=== PATIENT | male | born 1955 | race African-American/Black ===

== ENCOUNTER 2024-12-12 10:04 | Emergency (ER) | payer OTHER, SELFPAY ==
[2024-12-12 10:10] VITALS: BP 146/98; PULSE 62; RESP 20; TEMP 36.6; O2SAT 100
--- NOTE | 2024-12-12 10:31 | ED.EAR ---
HPI - Ear Problem General Chief complaint: Ear Stated complaint: left ear Time Seen by Provider: 12/12/24 10:15 Source: patient and RN notes reviewed Mode of arrival: ambulatory Limitations: no limitations History of Present Illness HPI Narrative: 69-year-old male presents Express Care with caregiver complaining of left ear pain the last 3 days. Patient has an intellectual disability patient is verbal but unable to hold a conversation. Caregiver states paste been complain of his ear hurting the last 3 days. Caregiver denies any upper respiratory symptoms, fevers, cough, nausea, vomiting, diarrhea, chest pain, breathing problems, or any other symptoms. They have not tried anything [id number] to help with pain. Related Data Allergies Allergy/AdvReac Type Severity Reaction Status Date / Time No Known Allergies Allergy Verified 12/12/24 10:20 Review of Systems Review of Systems: CONSTITUTIONAL: Denies fever, chills, or sweats. EYES: Denies visual changes, redness, or discharge. ENT: Denies rhinorrhea, congestion, sore throat. Positive for otalgia. CARDIOVASCULAR: Denies chest pain, palpitations, or edema. RESPIRATORY: Denies cough or dyspnea. GASTROINTESTINAL: Denies abdominal pain, nausea, vomiting, or diarrhea. GENITOURINARY: Denies dysuria or hematuria. SKIN: Denies rash or itching. MUSCULOSKELETAL: Denies back pain, joint pain, or myalgia. NEUROLOGIC: Denies headache, numbness, or weakness. PSYCHIATRIC: Denies anxiety or depression. All other systems reviewed are negative, except as documented in HPI. PMFSH Comments At the time of my signature, I reviewed and agree with the nursing past medical, surgical, social, and family history. There is no relevant family history pertinent to the patient complaint. Exam Narrative: GENERAL: This is a well-nourished, well-developed adult, in no apparent distress. They are non ill-appearing, nontoxic appearing. HEAD: normocephalic, atraumatic. EYES: Sclera clear/white. Conjunctiva normal. Vision is grossly intact. Extraocular movements intact EARS: External ears normal, auditory canals clear and without drainage, TMs normal without perforation. Hearing grossly intact. NOSE: External nose normal with no obvious nasal discharge, nasal turbinates without redness, no rhinorrhea. THROAT: Mucous membranes moist, posterior pharynx clear, without erythema or swelling. Uvula midline. NECK: Neck supple, non-tender without lymphadenopathy, masses or thyromegaly. CARDIOVASCULAR: Regular rate and rhythm without murmurs, gallops, or rubs. RESPIRATORY: Clear to auscultation. Breath sounds equal bilaterally. No wheezes, rales, or rhonchi. SKIN: warm, Dry, intact with no suspicious lesions or rash, good texture and turgor. NEURO: awake, alert, and oriented to person. In status is baseline for patient. There were no obvious focal neurologic abnormalities. EXTREMITIES: No joint tenderness, effusion, or edema noted. Course Course Emergency Course: Portions of this record may have been created with voice recognition software Level of Care: Express Care Visit Vital Signs Vital signs: Vital Signs Temperature 97.8 F 12/12/24 10:10 Pulse Rate 62 12/12/24 10:10 Respiratory Rate 12/12/24 10:10 Blood Pressure 146/98 H 12/12/24 10:10 Pulse Oximetry 100 12/12/24 10:10 Oxygen Delivery Room Air 12/12/24 10:10 Temperature 97.8 F 12/12/24 10:10 Pulse Rate 62 12/12/24 10:10 Respiratory Rate 12/12/24 10:10 Blood Pressure 146/98 H 12/12/24 10:10 Pulse Oximetry 100 12/12/24 10:10 Oxygen Delivery Room Air 12/12/24 10:10 Reviewed Medical Decision Making MDM Narrative Medical decision making narrative: Physical exam reassuring, no evidence of infection on exam. No ear infection noted on exam. Likely in earache. Recommend supportive therapy. Discussed physical exam findings. Advised supportive measures and signs/symptoms to go to the ER. Pt is appropriate for outpt treatment and f/u. Differential Diagnosis Differential Diagnosis: Otitis media, otitis externa, impacted cerumen, earache, Vital Signs Vital Signs: Vital Signs Temperature 97.8 F 12/12/24 10:10 Pulse Rate 62 12/12/24 10:10 Respiratory Rate 12/12/24 10:10 Blood Pressure 146/98 H 12/12/24 10:10 Pulse Oximetry 100 12/12/24 10:10 Oxygen Delivery Room Air 12/12/24 10:10 Temperature 97.8 F 12/12/24 10:10 Pulse Rate 62 12/12/24 10:10 Respiratory Rate 12/12/24 10:10 Blood Pressure 146/98 H 12/12/24 10:10 Pulse Oximetry 100 12/12/24 10:10 Oxygen Delivery Room Air 12/12/24 10:10 Critical Care Time Critical Care Time Critical Care Time: No Discharge Plan Discharge Clinical Impression: Earache on left Patient Disposition: Home Condition: Stable Instructions: Earache (ED) Additional Instructions: Linus may take his prescribed p.r.n. Tylenol or ibuprofen as directed on the prescription for pain. No evidence on the infection exam. Please follow-up PCP in 5-7 days for re-evaluation especially if pain persists or symptoms change. Go to the ER if he develops breathing problems, vomiting, chest pains, confusion, fevers, or any serious concerns. Patient Language: Stateless Follow-up/Referrals: PHYSICIAN NOT ON STAFF,NONSTAFF [Primary Care Provider] Time of Disposition: 10:27
--- OUTSIDE RECORDS SUMMARY | 2024-12-12 11:08 | XMS_ITS | Clinical Summary ---
Author Organization [facility] Address [address], [facility] [address] [place] [address] Phone Care Team Providers Care Podiatric Foot And Ankle Specialist Name Role Phone Reynaldo Carlos DPM Unavailable [phone] Yoanna Jewell APRN, COSMETICS COUNTER MANAGER Primary Care P rovider JoseE Caceres MD Unavailable [phone] Allergies No known active allergies Medications acetaminophen (TYLENOL) 325 MG Tablet Take 650 mg by mouth every 4 hours as needed. Active guaiFENesin (ROBITUSSIN) 100 MG/5ML Liquid Take 200 mg by mouth every 4 hours as needed. Active atorvastatin (LIPITOR) 10 MG Tablet Take 1 Tab by mouth daily. 90 Tab 2 08/14/19 17 Active sertraline (ZOLOFT) 100 MG Tablet Take 200 mg by mouth every morning. 10/22/19 17 Active Cholecalciferol (VITAMIN D3) 1000 UNIT Tablet Take 1 Tab by mouth daily. 90 Tab 1 03/18/20 17 Active clonazePAM (KLONOPIN) 0.5 MG Tablet Take 0.25 mg by mouth 2 times daily. 08/28/19 18 Active Psyllium (Reguloid) 48.57 % PowderIndication s:Constipation, unspecified constipation type 1 rounded teaspoon in 8 oz water daily by mouth 1254 g 1 09/03/19 24 Active ibuprofen (MOTRIN) 400 MG Tablet Take 400 mg by mouth every 8 hours as needed for Mild or more severe pain. Active simethicone (Gas-X Ultra Strength) 180 MG CapsuleIndicatio ns:History of colon polyps Take as directed per double colon prep instructions 6 Capsule 05/27/19 25 Active bisacodyl EC (Dulcolax) 5 MG Tablet Delayed ResponseIndicati ons:History of colon polyps Take as directed per double colon prep instructions 6 Tablet 05/27/19 25 Active polyethylene glycol (MiraLax) 17 GM/SCOOP PowderIndication s:History of colon polyps Dispense two 238 gram bottles, follow double prep instruction for administration times. 476 g 05/27/19 25 Active Probiotic Product (Edico Genome) CapsuleIndicatio ns:Constipation, unspecified constipation type Take one tablet once daily 30 Capsule 6 06/09/19 25 Active Active Problems Problem Noted Date Diagnosed Date Profound intellectual disability 03/21/2016 HLD (hyperlipidemia) Hypertension Right-sided hemiplegic cerebral palsy Resolved Problems Problem Noted Date Diagnosed Date Resolved Date Status post partial colectomy 01/31/2020 07/02/2021 GI bleed 01/14/2020 07/02/2021 Acute blood loss anemia 01/14/202006/21 Left arm swelling 01/14/2020 07/02/2021 Sigmoid volvulus 01/09/2020 07/02/2021 Onychomycosis of toenail Immunizations Immunization Administration Dates Next Due Covid-19, Mrna, Lnp-s, Pf, 1 00 Mcg Or 50 Mcg Dose (MODERNA) 02/12/2021,05/23/2020,04/24/2020 Influenza Vaccine 12/16/2023 Influenza Vaccine greater than 3 yrs 01/24/2016, 12/21/2013 Influenza Vaccine, Quadrivalent, PF 12/10/2022,1 ,01/03/2021 Influenza, Injectable, Quadrivalent 02/01/2020,1 04/06/2015 Influenza, Seasonal, Injecta ble, Undefined 03/06/2019,12/22/2014,12/22/2013,2012 Pneumococcal Vaccine Adult - 23 Valent 01/22/2004 Sars-cov-2 (Covid-19) Vaccin e, Unspecified 12/16/2023 TB Skin Test 03/23/2012 TD VACCINE 01/21/2006,07/02/2005 TDAP Vaccine 07/03/2015 Td (Adult) 01/28/2006 Social History Tobacco Use Types Packs/Day Years Used Date Smoking Tobacco: Never Smokeless Tobacco: Never Tobacco Cessation:Counseling Given: No Alcohol Use Standard Drinks/Week Comments No 0 (1 standard drink = 0.6 oz pur e alcohol) [facility] Utilities Answer Date Recorded In the past 12 months has th e electric, gas, oil, or water company threatened to shut off services in your home? Patient declined 06/09/2024 Social Connection and Isolation Panel Answer Date Recorded In a typical week, how many times do you talk on the phone with family, friends, or neighbors? Patient declined 06/09/2024 How often do you get togethe r with friends or relatives? Patient declined 06/09/2024 How often do you attend jehovah's witness or restoration serv ices? Patient declined 06/09/2024 Do you belong to any clubs o r organizations such as jehovah's witness groups, unions, fraternal or athletic groups, or school groups? Patient declined 06/09/2024 How often do you attend meet ings of the clubs or organizations you belong to? Patient declined 06/09/2024 Are you , , di vorced, , never , or living with a partner? Patient declined 06/09/2024 AUDIT-C Answer Date Recorded Q1: How often do you have a drink containing alc ohol? Patient declined 06/09/2024 Q2: How many drinks containi ng alcohol do you have on a typical day when you are drinking? Patient declined 06/09/2024 Q3: How often do you have si x or more drinks on one occasion? Patient declined 06/09/2024 Overall Financial Resource Strain (CARDIA) Answe r Date Recorded How hard is it for you to pa y for the very basics like food, housing, medical care, and heating? Patient declined 06/09/2024 [facility] - Occupational Stress Questionnaire Answer Date Recorded Do you feel stress - tense, restless, nervous, or anxious, or unable to sleep at night because your mind is troubled all the time - these days? Patient declined 06/09/2024 Exercise Vital Sign Answer Date Recorde d On average, how many days pe r week do you engage in moderate to strenuous exercise (like a brisk walk)? Patient declined On average, how many minutes do you engage in exercise at this level? Patient declined 06/09/2024 Hunger Vital Sign Answer Date Recorded Within the past 12 months, y ou worried that your food would run out before you got the money to buy more. Patient declined Within the past 12 months, t he food you bought just didn't last and you didn't have money to get more. Patient declined PRAPARE - Transportation Answer Date Re corded In the past 12 months, has l ack of transportation kept you from medical appointments or from getting medications? Patient declined 06/09/2024 In the past 12 months, has l ack of transportation kept you from meetings, work, or from getting things needed for daily living? Patient declined 06/09/2024 Housing Stability Vital Sign Answer Jp e Recorded In the last 12 months, was t here a time when you were not able to pay the mortgage or rent on time? Patient declined 06/10/19 Number of Times Moved in the Last Year Not on fi le 06/09/2024 At any time in the past 12 m [facility], were you homeless or living in a [facility] (including now)? Patient declined 06/09/2024 Sexually Active Control Partners Comments Never Sex and Gender Information Value Date Recorded Sex Assigned at Not on file Legal Sex Male 12:14 AM CDT Gender Identity Not on file Sexual Orientation Not on file Last Filed Vital Signs Vital Sign Reading Time Taken Comments Blood Pressure 122/84 06/16/2024 10:21 AM CDT Pulse 62 06/16/2024 10:21 AM CDT Temperature 36.2 C (97.2 F) 06/16/2024 10:21 AM CDT Respiratory Rate 18 06/16/2024 10:21 AM CDT Oxygen Saturation 95% 06/16/2024 10:21 AM CDT Inhaled Oxygen Concentration - - Weight 85.3 kg (188 lb) 06/16/2024 10:21 AM CDT Height 170.2 cm (5' 7) 06/16/2024 10:21 AM CDT Body Mass Index 29.44 06/16/2024 10:21 AM CDT Plan of Treatment Upcoming Encounters Date Type Department Care Team (Late st Contact Info) Description 12/15/2024 8:00 AM CDT Lab [facility] [place] [address] [place] [id number] 12/22/2024 9:15 AM CDT Office Visit [facility] [place] [address] [place] [address] Yoanna Jewell, HOT STRIP MILL SUPERVISOR, COSMETICS COUNTER MANAGER [address] [place] [address] Health Maintenance Due Date Last Done Comments Cologuard 02/25/2000 Immunochemical Fecal Occult Blood 05/26/2019 05/25/2018 Zoster Immunization (2 of 2) 08/03/2024 06/08/2024 Influenza Immunization (#1) 11/21/202411/22, 12/10/2022, 01/02/2022, Additional history exists SARS-COV-2 Immunization ( season) 2024 12/16/2023, 02/16/2023, 01/02/2022, Additional history exists Td Immunization Every 10 Years (Adults With 1 Tdap) 07/02/2025 07/03/2015, 01/28/2006, 01/21/2006, Additional history exists Colonoscopy 06/16/2027 06/15/2024, 12/21, 01/31/2019 Colorectal Cancer Screening 06/16/2027 PSA Discussion Completed 11/12/2022, 10/21, 10/27/2015 Pneumococcal Immunization (50+ years) Completed 06/08/2024, 01/22/2004 Pneumococcal Immunization Combined Discontinued 06/08/2024, 01/22/2004 Respiratory Syncytial Virus (RSV) Immunization (Adult) Completed 06/08/2024 Hepatitis C Virus (HCV) Screening Completed 06/09/2024 Hepatitis B Immunization Aged Out No longer eligible based on patient's age to complete this topic Human Papillomavirus (HPV) Immunization Aged Out No longer eligible based on patient's age to complete this topic Meningococcal Immunization (ACWY) Aged Out No longer eligible based on patient's age to complete this topic Rotavirus Immunization Aged Out No lo nger eligible based on patient's age to complete this topic Procedures Procedure Name Priority Date/Time Associated Diagnosis Comments HEPATITIS C ANTIBODY Routine 06/09/2024 7:53 AM CDT Primary hypertension Mixed hyperlipidemia Encounter for HCV screening test for low risk patient PSA SCREEN Routine 11/12/2022 9:27 AM CDT Primary hypertension Mixed hyperlipidemia Screening for prostate cancer STOOL, OCCULT BLOOD IMMUNOASSAY (IFOB) Routine 05/25/2018 from Last 3 Months or Most Recently Relevant to Health Maintenance Results * HEPATITIS C ANTIBODY (06/09/2024 7:53 AM CDT) hepatitis C antibody 0.15 <1 S/CO 06/09/2024 11:08 PM CDT [facility] Comment: Signal/Cutoff ratio < 0.79 is Nondetected Signal/Cutoff ratio 0.80-0.99 is Grayzone Signal/Cutoff ratio > 0.99 is Detected Supplemental assays are recommended if signal/cutoff ratio is >/=1.00. Signal/cutoff ratio result >/= 5.00 is 97% predictive of positivity for recombinant immunoblot assay (RIBA) and will be reported to the [place] Department of Public Health as required. Blood Venipuncture / Unknown 06/09/2024 7:53 AM CDT 06/09/2024 7:53 AM CDT us Yoanna Jewell APRN, CNP CHEMISTRY ORDER NATE Final Result [facility] [address] [place] [address], * PSA SCREEN (11/12/2022 9:27 AM CDT) PSA SCREEN, TOTAL 0.63 <4.00 ng/mL 11/12/2022 10:23 AM CDT [facility] Blood Venipuncture / Unknown 11/12/2022 9:27 AM CDT 11/12/2022 9:34 AM CDT Narrative [facility] - 11/12/2022 10:23 AM CDT The [employer] Total PSA assay is a Chemiluminescent Microparticle Immunoassay (CMIA) for the quantitative determination of total PSA (both free PSA and PSA complexed to [id number]) in human serum. us Yoanna Jewell APRN, CNP CHEMISTRY ORDER NATE Final Result [facility] [address] [place] [address] * STOOL, OCCULT BLOOD IMMUNOASSAY (IFOB) (05/25/2018) Specimen of unknown material (specimen) STOOL SPECIMEN / Unknown us Suzanne Perdomo MD BODY FLUIDS & STOOLS ORDERAB LES Final Result from Last 3 Months or Most Recently Relevant to Health Maintenance Insurance MEDICAID [place] Advance Directives * Full Code (Latest Code Status on File) Date Activated Date Inactivated Comments 01/09/2020 12:45 PM 01/16/2020 3:59 PM CPR-Full Treatment: FULL ARREST: Attempt Resuscitation/CPR wit intubation and mechanical ventilation. PRE-ARREST: Use entire range of life support measures to stabilize the patient. Care Teams Podiatric Foot And Ankle Specialist Relationship Specialty Start Date End Date Yoanna Jewell APRN, CNP [address] [place] [address] PCP - General Advanced Practice Nurse 07/02/21 Reynaldo Carlos DPM Podiatry 02/04/16 Jose E Caceres MD [address] [phone] Consulting Physician Neurology 10/16/23
--- OUTSIDE RECORDS SUMMARY | 2024-12-12 11:08 | XMS_ITS | Clinical Summary ---
Author Organization [facility] Address [address] [place] [address] Care Team Providers Care Sustainability Purchasing Agent Name Role Phone Yoanna Jewell NP Primary Care Provide r Allergies No known active allergies Medications LORazepam (ATIVAN) 0.5 mg tabletIndicatio ns:Insomnia,anx iety Take 1 tablet (0.5 mg total) by mouth every 6 (six) hours as needed for anxiety 30 tablet 03/13/2023 Active ibuprofen (ADVIL,MOTRIN) 400 mg tabletIndicatio ns:Pain,may take with tylenol if needed at same time Take 1 tablet (400 mg total) by mouth every 8 (eight) hours as needed for pain 30 tablet 03/13/2023 Active Medical History Medical History Date Comments Intellectual disability HTN (hypertension) HLD (hyperlipidemia) Social History Tobacco Use Types Packs/Day Years Used Date Smoking Tobacco: Never Personal Safety Answer Date Recorded Have you ever been in or are you currently in a harmful physical or emotional relationship or is someone making you feel afraid or unsafe? Patient unable to answer 03/13/2023 Sex and Gender Information Value Date Recorded Sex Assigned at Not on file Legal Sex Male 5:21 AM RIGGER CHIEF Gender Identity Not on file Sexual Orientation Not on file Obstetrics History Last Filed Vital Signs Vital Sign Reading Time Taken Comments Blood Pressure 122/76 03/13/2023 3:38 PM RIGGER CHIEF Pulse 76 03/13/2023 3:38 PM RIGGER CHIEF Temperature 36.2 C (97.1 F) 03/13/2023 11:59 AM RIGGER CHIEF Respiratory Rate 19 03/13/2023 3:38 PM RIGGER CHIEF Oxygen Saturation 99% 03/13/2023 3:38 PM RIGGER CHIEF Inhaled Oxygen Concentration - - Weight 83.9 kg (185 lb) 03/13/2023 11:59 AM RIGGER CHIEF Height 165.1 cm (5' 5) 03/07/2023 1:57 PM RIGGER CHIEF Body Mass Index 30.79 03/07/2023 1:57 PM RIGGER CHIEF Plan of Treatment Health Maintenance Due Date Last Done Comments Colon Cancer Screening-Colonoscopy 1955 Depression Screening 1955 Fall Risk Assessment 1955 Hepatitis C Screening 1955 Prostate Cancer Screening-PSA 1955 Hepatitis B Screening 1973 Pneumococcal vaccine 65+ (2 of 2 - PCV) 2005 01/22/2004 Zoster Vaccine (1 of 2) 2005 Abdominal Aortic Aneurysm (A AA) Screen 02/25/2020 01/09/2020 Well Visit 65+ 02/25/2020 Covid-19 Vaccine (2024-2 6 season) 2024 02/16/2023, 01/02/2022, 11/01/2021, Additional history exists Influenza Vaccine (#1) 2024 , 01/02/2022, 01/03/2021, Additional history exists DTaP/Tdap/Td Vaccine (2 - Td or Tdap) 07/02/2025 07/03/2015, 01/28/2006, 01/21/2006, Additional history [place] [address] [facility] Care Teams Sustainability Purchasing Agent Relationship Specialty Start Date End Date Yoanna Jewell NP [address] [place] [address] PCP - General Emergency Medicine 03/07/23
--- OUTSIDE RECORDS SUMMARY | 2024-12-12 11:08 | XMS_ITS | Encounter Summary ---
Author Organization [facility] Address [address] [place] [address] Phone Care Team Providers Care Poultry Farm Supervisor Name Role Phone Reynaldo Carlos DPJoslyn Unavailable [phone] Yoanna Jewell APRN, CNP Primary Care P rovider Jose E Caceres MD Unavailable [phone] Reason for Visit * Reason Comments Medication Refill Encounter Details Date Type Department Care Team (Late st Contact Info) Description [facility]/07/20[facility] [place] [address] [place] [address] Yoanna Jewell APRN, CNP [address] [place] [address] Medication Refill Social History Tobacco Use Types Packs/Day Years Used Date Smoking Tobacco: Never Smokeless Tobacco: Never Alcohol Use Standard Drinks/Week Comments No 0 (1 standard drink = 0.6 oz pur e alcohol) Sexually Active Control Partners Comments Never Sex and Gender Information Value Date Recorded Sex Assigned at Not on file Legal Sex Male 12:14 AM CDT Gender Identity Not on file Sexual Orientation Not on file documented as of this encounter Miscellaneous Notes * Telephone Encounter - Mago Plummer RN - 08/07/2023 10:35 AM CDT Medication(s) refilled and signed per [facility] Chronic Medication Refill Standing Order for Pediatricand Adult Patients. Requested Prescriptions Pending Prescriptions Disp Refills Fiber Adult Gummies 2 g Chewable Tablet [Pharmacy Med Name: FIBER WELL GUMMIES] 90 Tablet 1 Sig: Chew 1 tab po bid Laxatives Protocol Passed - 08/07/2023 10:35 AM Passed - Visit with relevant provider in past 12 months or upcoming 90 days Recent Visits Date Type Provider Dept 05/25/23 Office Visit Yoanna Jewell APRN, CNP [facility] 03/17/23 Office Visit Karis Marcum MD [facility] 01/08/23 Office Visit Yoanna Jewell APRN, CNP [facility] Showing recent visits within past 365 days and meeting all other requirements Future Appointments No visits were found meeting these conditions. Showing future appointments within next 90 days and meeting all other requirements Passed - Up to date with colon cancer screening Health Maintenance documented in this encounter Plan of Treatment Upcoming Encounters Date Type Department Care Team (Late st Contact Info) Description 12/15/2024 8:00 AM CDT Lab [facility] [place] [address] [place] [address] 12/22/2024 9:15 AM CDT Office Visit [facility] [place] [address] [place] [address] Yoanna Jewell APRN, CNP [address] [place] [address] documented as of this encounter Visit Diagnoses Diagnosis Constipation, unspecified constipation type documented in this encounter Additional Health Concerns Assessment Noted Time PHQ-9 Depression Total Score: 2 10/28/19 17 8:00 AM CDT documented as of this encounter Care Teams Poultry Farm Supervisor Relationship Specialty Start Date End Date Yoanna Jewell APRN, CNP [address] [place] [address] PCP - General Advanced Practice Nurse 07/02/21 Reynaldo Carlos DPM Podiatry 02/04/16 Jose E Caceres MD [address] [place] [id number] Consulting Physician Neurology 10/16/23 documented as of this encounter
== END 2024-12-12 10:30 | disposition home or self-care (01) ==
DX: H92.02 Otalgia, left ear (principal); F79 Unspecified intellectual disabilities; I10 Essential (primary) hypertension; E78.00 Pure hypercholesterolemia, unspecified; K21.9 Gastro-esophageal reflux disease without esophagitis
CPT/HCPCS: 99202; G0463